=== PATIENT | female | born 1985 | race American Indian/Alaskan Native ===

== ENCOUNTER 2017-05-10 11:04 | Outpatient (CLI) | payer MEDICAID ==
[2017-05-10 12:27] LABS: Hematocrit 30.4 % (30.3-42.9); Hemoglobin 9.6 gm/dl (10.1-14.3); Mean Corpuscular HGB Conc 32 % (30-34); Mean Corpuscular Volume 80 fl (79-97); Platelet Count 434 K/mm3 (140-440); Red Blood Count 3.81 M/mm3 (3.65-5.03); Red Cell Distribution Width 15.7 % (13.2-15.2); White Blood Count 11.4 K/mm3 (4.5-11.0)
[2017-05-10 12:33] LABS: Mean Corpuscular Hemoglobin 25 pg (28-32)
[2017-05-10 12:56] LABS: Alanine Aminotransferase 7 units/L (7-56); Lactate Dehydrogenase 182 units/L (91-180)
[2017-05-10 13:07] LABS: Bilirubin,Urine NEG (Negative); Blood,Urine SM (Negative); Ketones,Urine NEG (Negative); Leukocyte Esterase,Urine NEG (Negative); Mucus,Urine FEW /HPF; Nitrite,Urine NEG (Negative); Protein,Urine <15 mg/dL mg/dL (Negative); Urobilinogen,Urine < 2.0 mg/dL (<2.0); WBC,Urine < 1.0 /HPF (0.0-6.0)
[2017-05-10 13:20] LABS: HIV-1 Antigen p24 Non React (Non React); HIVR-1/2 Ab Non React (Non React)
[2017-05-10] MEDS ORDERED: AMBIEN PO PRN (13:40)
[2017-05-10] MEDS ORDERED: ZOFRAN IV PRN (13:40)
[2017-05-10] MEDS ORDERED: TYLENOL PO PRN (13:40)
[2017-05-10] MEDS ORDERED: COLACE PO PRN (13:40)
--- NOTE | 2017-05-10 14:09 | History and Physical Report ---
History of Present Illness Date of examination: 05/10/17 (pt sent from office for PreE evaluation) History of present illness: EDC Confirmation: 06/07/2017 Gestational Age: 12 weeks Past History : 5 Term Births: 2 Living Children: 2 Para: 2 Elect. Ab: 1 Spont. Ab: 1 # 1 Delivery date: 1999 Weeks Gestation: 14 Delivery type: EAB Comments: denies # 2 Delivery date: 04/2006 Weeks Gestation: 36 labor: yes Delivery type: Anesthesia type: none Delivery location: [place] Infant Sex: Female weight: 4-14 Comments: PTL # 3 Delivery date: 2006 Weeks Gestation: 6 Delivery type: SAB Comments: denies # 4 Delivery date: 12/2012 Weeks Gestation: term Delivery type: Anesthesia type: epidural Delivery location: [facility] Sex: Male weight: 7-3 Comments: PE Lovenox; kidney stent Risk Factors: Smoked Tobacco Use: Former smoker Cigarettes: Yes Smokeless Tobacco Use: Never Passive smoke exposure: no Drug use: no HIV high-risk behavior: low risk Caffeine use: 1 drinks per day Alcohol use: no 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 of genital herpes: no Partner hx. of genital herpes: no Rash, Viral, or Febrile illness since last LMP? no Varicella/Chicken Pox Status: Previous Disease Infection History Comments: trich Genetic History Congenital Heart Defect: Mom: no Dad: no Parish Disease: Mom: no Dad: no Thalassemia Mom: no Dad: no Neural Tube Defect Mom: no Dad: no Down's Syndrome Mom: no Dad: no Parker-Sachs Mom: no Dad: no Sickle Cell Disease/Trait Mom: no Dad: yes Hemophilia Mom: no Dad: no Muscular Dystrophy Mom: no Dad: no Cystic Fibrosis Mom: no Dad: no [address] Chorea Mom: no Dad: no Mental Retardation Mom: no Dad: no Fragile X Mom: no Dad: no Other Genetic/Chromosomal Disorder Mom: no Dad: no Child w/other defect Mom: no Dad: no Enviromental Exposures Xray Exposure: no Medication, drug, or alcohol use since LMP: no Chemical/Other Exposure: no Exposure to Cat Liter: no Hx of Parvovirus (Fifth Disease): no Occupational Exposure to Children: none Active Medications: None Current Allergies: No known allergies Laboratory Results Date/Time Collected: 11/23/2016 Routine Urinalysis Leukocytes: negative Nitrite: negative Urobilinogen: negative Protein: Negative Blood: negative Ketone: negative Bilirubin: negative Glucose: Negative Urine HCG: positive Review of Systems General Denies fever, chills, sweats, anorexia, fatigue, weakness, malaise, weight loss and sleep disorder. Denies nausea, vomiting, headache, swelling of legs, abdominal pain, vaginal discharge, vaginal bleeding and contractions. Denies vaginal discharge, incontinence, dysuria, hematuria, urinary frequency, amenorrhea, menorrhagia, abnormal vaginal bleeding, pelvic pain, genital sores, decreased libido, painful periods, painful sex, urinary urgency, hot flashes, vaginal dryness, vaginal itching and vaginal odor. CV Denies chest pains, palpitations, syncope, dyspnea on exertion, orthopnea, PND and peripheral edema. Resp Denies cough, dyspnea at rest, excessive sputum, hemoptysis, wheezing and pleurisy. GI Denies nausea, vomiting, diarrhea, constipation, change in bowel habits, abdominal pain, melena, hematochezia, jaundice, gas/bloating, indigestion/ heartburn, dysphagia and odynophagia. Endo Denies cold intolerance, heat intolerance, polydipsia, polyphagia, polyuria and unusual weight change. Breast Denies left breast lump, right breast lump, nipple discharge, bloody discharge from nipple, breast pain, abnormal mammogram and breast enlargement. MS Denies back pain, joint pain, joint swelling, muscle cramps, muscle weakness, stiffness, arthritis, sciatica, restless legs, leg pain at night and leg pain with exertion. Derm Denies rash, itching, dryness and suspicious lesions. Neuro Denies paralysis, paresthesias, headache, seizures, tremors, vertigo, transient blindness, frequent falls, frequent headaches and difficulty walking. Psych Denies depression, anxiety, irritability and mood swings. Eyes Denies blurring, diplopia, irritation, discharge, vision loss, eye pain and photophobia. ENT Denies earache, ear discharge, tinnitus, decreased hearing, nasal congestion, nosebleeds, sore throat and hoarseness. Allergy Denies urticaria, allergic rash, hay fever and recurrent infections. Heme Denies abnormal bruising, bleeding and enlarged lymph nodes. 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 Vulva/Vagina: No lesions, normal BUS, normal rugae Cervix: No lesions; no cervical motion tenderness Uterus: normal size and position, midline, mobile Adnexae: no masses or tenderness Rectovaginal: no masses or tenderness Past History - Obstetrical History Expected Date of Delivery: 06/07/17 Actual Gestation: 36 Week(s) 0 Day(s) : 5 Para: 2 Hx # Term Pregnancies: 1 Number of Pregnancies: 1 (delivered @ 36 weeks; PE after 2013 PTD) Spontaneous Abortions: 1 Induced : 1 Number of Living Children: 2 Medications and Allergies Allergies Allergy/AdvReac Type Severity Reaction Status Date / Time bee venom (honey bee) Allergy Itching Verified 05/10/17 14:18 shrimp Allergy Itching Verified 05/10/17 14:18 Active Meds: Active Medications Acetaminophen (Tylenol) 650 mg PO Q4H PRN PRN Reason: Pain MILD(1-3)/Fever >100.5/SEGAL Docusate Sodium (Colace) 100 mg PO Q12H PRN PRN Reason: Constipation Heparin Sodium (Porcine) (Heparin) 5,000 unit SUB-Q Q12HR RIZWANA Lactated Ringer's (Lactated Ringers) 1,000 mls @ 125 mls/hr IV DIRECT RIZWANA Multivitamins/Iron/Calcium ( Vitamin) 1 each PO QDAY RIZWANA Ondansetron HCl (Zofran) 4 mg IV Q6H PRN PRN Reason: Nausea And Vomiting Zolpidem Tartrate (Ambien) 10 mg PO ONCE PRN PRN Reason: Sleep Review of Systems All systems: negative - Vital Signs Vital signs: Vital Signs Temp Pulse Resp BP 98.5 F 90 16 150/101 05/10/17 11:47 05/10/17 11:47 05/10/17 11:47 05/10/17 11:47 Temp Pulse Resp BP Pulse Ox 98.5 F 88 16 156/94 05/10/17 11:47 05/10/17 13:45 05/10/17 11:47 05/10/17 13:45 - Physical Exam Breasts: Positive: deferred Cardiovascular: Regular rate, Normal S1, Normal S2 Lungs: Positive: Normal air movement Abdomen: Positive: normal appearance, soft, normal bowel sounds. Negative: distention, tenderness Genitourinary (Female): Positive: normal external genitalia Vulva: both: normal Vagina: Positive: normal moisture. Negative: discharge Cervix: Negative: lesion, discharge Uterus: Positive: normal size, normal contour Adnexa: both: normal Anus/Rectum: Positive: normal perianal skin, heme negative. Negative: rectal mass, hemorrhoids Extremities: Positive: normal Deep Tendon Reflex Grade: Normal +2 - Obstetrical FHR: category 1 Uterine Contraction Monitor Mode: External Cervical Dilatation: 1 Cervical Effacement Percentage: 30 station: -3 Uterine Contraction Pattern: Absent Uterine Tone Measurement Phase: Resting Results Result Diagrams: 05/10/17 11:08 05/10/17 11:08 Abnormal lab results 05/10/17 05/10/17 05/10/17 Range/Units 11:08 11:08 11:56 WBC 11.4 H (4.5-11.0) K/mm3 Hgb 9.6 L (10.1-14.3) gm/dl MCH 25 L (28-32) pg RDW 15.7 H (13.2-15.2) % Creatinine 0.5 L (0.7-1.2) mg/dL Lactate Dehydrogenase 182 H (91-180) units/L U Epithel Cells (Auto) 15.0 H (0-13.0) /HPF All other labs normal. Profile drawn 12-23-16 in OB office: HBsAg Screen Negative Negative *1 Rubella Antibodies, IgG 2.74 index Immune >0.99 *2 Non-immune <0.90 Equivocal 0.90 - 0.99 Immune >0.99 ABO Grouping O *3 Rh Factor Positive *4 Please note: Prior records for this patient's ABO / Rh type are not available for additional verification. Antibody Screen Negative Negative *5 RPR Non Reactive Non Reactive *6 WBC [H] 14.4 x10E3/uL 3.4-10.8 *7 RBC 4.15 x10E6/uL 3.77-5.28 *8 Hemoglobin 11.2 g/dL 11.1-15.9 *9 Hematocrit 34.8 % 34.0-46.6 *10 MCV 84 fL 79-97 *11 MCH 27.0 pg 26.6-33.0 *12 MCHC 32.2 g/dL 31.5-35.7 *13 RDW 14.7 % 12.3-15.4 *14 Platelets [H] 438 x10E3/uL 150-379 *15 Neutrophils 65 % *16 Lymphs 26 % *17 Monocytes 8 % *18 Eos 1 % *19 Basos 0 % *20 ! Immature Cells <No Reported Value> *21 Neutrophils (Absolute) [H] 9.5 x10E3/uL 1.4-7.0 *22 Lymphs (Absolute) [H] 3.7 x10E3/uL 0.7-3.1 *23 Monocytes(Absolute) [H] 1.1 x10E3/uL 0.1-0.9 *24 Eos (Absolute) 0.1 x10E3/uL 0.0-0.4 *25 Baso (Absolute) 0.0 x10E3/uL 0.0-0.2 *26 ! Immature Granulocytes 0 % *27 ! Immature Grans (Abs) 0.0 x10E3/uL 0.0-0.1 *28 ! NRBC <No Reported Value> *29 Hematology Comments: <No Reported Value> *30 Tests: (2) Cystic Fibrosis Profile (835839) ! CF, Screen Comment: *31 RESULTS: Negative for 32 mutations analyzed INTERPRETATION: Tests: (3) HB Solu + Rflx [facility] ([id number]) Hemoglobin (Hgb) Solubility Negative Negative *33 Tests: (4) Panel 432685 ([id number]) HIV Screen 4th Generation wRfx Non Reactive Non Reactive *34 Tests: (5) HCV Ab w/Rflx to Verification ([id number]) ! HCV Ab <0.1 s/co ratio 0.0-0.9 *35 Tests: (6) Comment: ([id number]) ! Comment: SPRCS *36 Non reactive HCV antibody screen is consistent with no HCV infection, unless recent infection is suspected or other evidence exists to indicate HCV infection. Assessment and Plan APU admission for monitoring of BP and to monitor for labor. GBS result not back yet. PreE Labs drawn today. Ongoing 24hr urine. [facility] consult. aware Discussed POC with pt and SO both voiced understanding. All questions addressed. - Patient Problems (1) 36 weeks gestation of Onset Date: ~05/10/17 Current Visit: Yes Status: Acute Plan to address problem: 1. continuous monitoring 2. BPP and KATHE ultrasound ordered 3. monitor for s/sx of PTL (2) Elevated blood pressure affecting in third trimester, antepartum Onset Date: ~05/10/17 Current Visit: Yes Status: Acute Plan to address problem: 1. PreE labs drawn wnl 2. 24hr urine to be collected 3. [facility] consult due to new onset elevated BP in 3rd trimester (3) History of delivery Current Visit: Yes Status: Acute Plan to address problem: 1. continuous monitoring (4) History of pulmonary embolus (PE) Current Visit: Yes Status: Acute Plan to address problem: 1. continue heparin therapy as prescribed by [facility] Pt was transitioned from Lovenox 2. [facility] consult for continuity of care
[2017-05-10] MEDS: LACTATED RINGERS 1,000 ML IV SCH (17:04)
[2017-05-10] MEDS: HEPARIN SUB-Q SCH (21:57)
[2017-05-11] MEDS: LACTATED RINGERS 1,000 ML IV SCH ×2 (00:26→08:39)
--- NOTE | 2017-05-11 07:26 | Progress Note ---
Assessment and Plan Patient resting, no complaints. denies SEGAL, visual changes or epigastric pain. b /p mostly 120-130's/60-80's with a few elevated reading last night (highest 170/ 90.) Continue 24h urine until 1445. Will consult Dr. Campos with results and for plan. - Patient Problems (1) 36 weeks gestation of Onset Date: ~05/10/17 Current Visit: Yes Status: Acute (2) Elevated blood pressure affecting in third trimester, antepartum Onset Date: ~05/10/17 Current Visit: Yes Status: Acute Plan to address problem: Continue to monitor b/p and for s/s pre-e 24h urine will be complete @1445 Subjective - Subjective Date of service: 05/11/17 Principal diagnosis: 36w1d; elevated b/p, 24h urine in progress Patient reports: movement normal, other (No SEGAL, visual changes or epigastric pain), no new complaints, no loss of fluid, no vaginal bleeding, no contractions Objective - Vital Signs Vital Signs: Vital Signs - 12hr 05/10/17 05/10/17 05/10/17 19:26 19:31 19:34 Temperature Pulse Rate 93 H 96 H 102 H Respiratory Rate Blood Pressure O2 Sat by Pulse 98 97 93 Oximetry 05/10/17 05/10/17 05/10/17 19:36 19:41 19:46 Temperature Pulse Rate 98 H 104 H 104 H Respiratory Rate Blood Pressure O2 Sat by Pulse 99 98 98 Oximetry 05/10/17 05/10/17 05/10/17 19:51 19:53 19:56 Temperature Pulse Rate 102 H 81 85 Respiratory Rate Blood Pressure 136/73 O2 Sat by Pulse 99 98 Oximetry 05/10/17 05/10/17 05/10/17 20:01 20:06 20:10 Temperature Pulse Rate 90 91 H 83 Respiratory Rate Blood Pressure 136/69 O2 Sat by Pulse 99 97 Oximetry 05/10/17 05/10/17 05/10/17 20:11 20:34 20:39 Temperature 98.5 F Pulse Rate 91 H 75 92 H Respiratory 18 Rate Blood Pressure 136/69 O2 Sat by Pulse 99 99 98 Oximetry 05/10/17 05/10/17 05/10/17 20:44 20:49 20:53 Temperature Pulse Rate 85 97 H 86 Respiratory Rate Blood Pressure 130/75 O2 Sat by Pulse 98 99 Oximetry 05/10/17 05/10/17 05/10/17 20:54 20:59 21:06 Temperature Pulse Rate 101 H 80 88 Respiratory Rate Blood Pressure O2 Sat by Pulse 98 98 100 Oximetry 05/10/17 05/10/17 05/10/17 21:11 21:16 21:21 Temperature Pulse Rate 94 H 86 85 Respiratory Rate Blood Pressure O2 Sat by Pulse 97 98 98 Oximetry 05/10/17 05/10/17 05/10/17 21:26 21:31 21:33 Temperature Pulse Rate 88 82 87 Respiratory Rate Blood Pressure O2 Sat by Pulse 99 98 58 L Oximetry 05/10/17 05/10/17 05/10/17 21:36 21:48 21:53 Temperature Pulse Rate 88 100 H 79 Respiratory Rate Blood Pressure 143/86 O2 Sat by Pulse 99 98 97 Oximetry 05/10/17 05/10/17 05/10/17 22:01 22:02 22:06 Temperature Pulse Rate 92 H 91 H 90 Respiratory Rate Blood Pressure O2 Sat by Pulse 98 93 97 Oximetry 05/10/17 05/10/17 05/10/17 22:11 22:17 22:22 Temperature Pulse Rate 89 86 89 Respiratory Rate Blood Pressure O2 Sat by Pulse 98 98 98 Oximetry 05/10/17 05/10/17 05/10/17 22:27 22:32 22:37 Temperature Pulse Rate 87 81 84 Respiratory Rate Blood Pressure O2 Sat by Pulse 97 98 99 Oximetry 05/10/17 05/10/17 05/10/17 22:43 22:48 22:53 Temperature Pulse Rate 90 86 95 H Respiratory Rate Blood Pressure O2 Sat by Pulse 98 98 99 Oximetry 05/10/17 05/10/17 05/10/17 22:54 22:58 23:03 Temperature Pulse Rate 93 H 90 94 H Respiratory Rate Blood Pressure 177/90 O2 Sat by Pulse 98 99 Oximetry 05/10/17 05/10/17 05/10/17 23:07 23:22 23:24 Temperature Pulse Rate 95 H 81 99 H Respiratory Rate Blood Pressure O2 Sat by Pulse 91 81 L 98 Oximetry 05/10/17 05/10/17 05/10/17 23:29 23:34 23:39 Temperature Pulse Rate 99 H 90 89 Respiratory Rate Blood Pressure O2 Sat by Pulse 99 98 98 Oximetry 05/10/17 05/10/17 05/10/17 23:44 23:49 23:54 Temperature Pulse Rate 94 H 88 92 H Respiratory Rate Blood Pressure O2 Sat by Pulse 99 97 99 Oximetry 05/10/17 05/11/17 05/11/17 23:59 00:04 00:56 Temperature Pulse Rate 95 H 96 H 118 H Respiratory Rate Blood Pressure 147/84 O2 Sat by Pulse 98 99 Oximetry 05/11/17 05/11/17 05/11/17 01:53 02:53 03:53 Temperature Pulse Rate 88 84 85 Respiratory Rate Blood Pressure 152/70 138/85 129/65 O2 Sat by Pulse Oximetry 05/11/17 05/11/17 05/11/17 04:54 05:53 06:54 Temperature Pulse Rate 80 73 83 Respiratory Rate Blood Pressure 122/66 137/77 137/68 O2 Sat by Pulse Oximetry - Exam Breasts: normal Cardiovascular: Regular rate Lungs: Clear to auscultation, Normal air movement Abdomen: Present: normal appearance, soft Vulva: both: normal Uterus: Present: normal FHR: auscultation normal, category 1 Uterine Contraction Monitor Mode: External Uterine Contraction Pattern: Absent Uterine Tone Measurement Phase: Resting Extremities: normal Deep Tendon Reflex Grade: Normal +2 - Labs Labs: Abnormal Labs 05/10/17 05/10/17 05/10/17 11:08 11:08 11:56 WBC 11.4 H Hgb 9.6 L MCH 25 L RDW 15.7 H Creatinine 0.5 L Lactate Dehydrogenase 182 H U Epithel Cells (Auto) 15.0 H Laboratory Results - last 24 hr 05/10/17 05/10/17 05/10/17 11:08 11:08 11:08 WBC 11.4 H RBC 3.81 Hgb 9.6 L Hct 30.4 MCV 80 MCH 25 L MCHC 32 RDW 15.7 H Plt Count 434 Creatinine 0.5 L Estimated GFR > 60 Uric Acid 5.0 AST 9 ALT 7 Lactate Dehydrogenase 182 H Urine Color Urine Turbidity Urine pH Ur Specific Mcwilliams Urine Protein Urine Glucose (UA) Urine Ketones Urine Blood Urine Nitrite Urine Bilirubin Urine Urobilinogen Ur Leukocyte Esterase Urine WBC (Auto) Urine RBC (Auto) U Epithel Cells (Auto) Urine Mucus RPR Nonreactive HIV 1&2 Antibody Rapid Non react HIV P24 Antigen Non react Blood Type Antibody Screen ENRIQUETA Antibody Screen 05/10/17 05/10/17 11:56 15:30 WBC RBC Hgb Hct MCV MCH MCHC RDW Plt Count Creatinine Estimated GFR Uric Acid AST ALT Lactate Dehydrogenase Urine Color Yellow Urine Turbidity Clear Urine pH 7.0 Ur Specific Mcwilliams 1.009 Urine Protein <15 mg/dl Urine Glucose (UA) Neg Urine Ketones Neg Urine Blood Sm Urine Nitrite Neg Urine Bilirubin Neg Urine Urobilinogen < 2.0 Ur Leukocyte Esterase Neg Urine WBC (Auto) < 1.0 Urine RBC (Auto) 1.0 U Epithel Cells (Auto) 15.0 H Urine Mucus Few RPR HIV 1&2 Antibody Rapid HIV P24 Antigen Blood Type O POSITIVE Antibody Screen TNR ENRIQUETA Antibody Screen Negative
--- NOTE | 2017-05-11 08:14 | Ultrasound Report ---
ULTRASOUND BIOPHYSICAL PROFILE: History: well being Technique: Transabdominal ultrasound with Doppler interrogation. 2 - breathing movements 2 - movements 2 - posture and tone 2 - Qualitative amniotic fluid volume 8 - TOTAL SCORE OF POSSIBLE 8 Heart Rate (bpm) 145
--- NOTE | 2017-05-11 08:17 | Ultrasound Report ---
OB ULTRASOUND History: well being. Technique: Transabdominal ultrasound with Doppler interrogation. Gestation: Single Position: Cephalic Amniotic Fluid: Normal KATHE = 13.7 cm Placenta: Anterior, right lateral Placental Grade: 3 Heart Rate: 156 BPM BPD: 8.2 cm = 32 w 6 d HC: 30.3 cm = 33 w 5 d AC: 31.5 cm = 35 w 3 d FL: 6.7 cm = 34 w 3 d HC/AC Ratio: 0.96 Cephalic Index: 77.1 Estimated Weight: 2481 grams Clinical age = 36 w 3 d EDC: 06/04/17 US Gest. Age = 34 w 1 d EDC: 06/20/17
[2017-05-11] MEDS ORDERED: PRENATAL VITAMIN PO SCH (10:00)
[2017-05-11] MEDS: HEPARIN SUB-Q SCH (10:06)
[2017-05-11] MEDS ORDERED: APRESOLINE IV PRN (10:33)
--- NOTE | 2017-05-11 16:24 | Event Note ---
Date: 05/11/17 TP 198 in 24h urine, dx gestational htn. Will plan of iol next week @ 37 weeks. f/u appointment scheduled in office 05/14 @ 1400. pre-e precautions reviewed. plan for d/c home, dr. Campos consulted.
--- NOTE | 2017-05-11 16:27 | Discharge Summary ---
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 Primary care physician: MEAGHAN DAIYL Hospitalization Reason for admission: observation (observation for elevated blood pressure) Discharge diagnosis: other (gestational htn) Condition at discharge: Good Disposition: DC-01 TO HOME OR SELFCARE - Discharge Diagnoses (1) 36 weeks gestation of Status: Acute (2) Elevated blood pressure affecting in third trimester, antepartum Status: Acute Plan - Provider Discharge Summary Activity: routine Diet: routine Instructions: routine Additional instructions: [] Smoking cessation referral if applicable(refer to patient education folder for contact #) [] Refer to [facility]'s [facility] Booklet Call your doctor immediately for: * Fever > 100.5 * Heavy vaginal bleeding ( >1 pad per hour) * Severe persistent headache * Shortness of breath * Reddened, hot, painful area to leg or breast * Drainage or odor from incision. * Keep incision clean and dry at all times and follow doctor's instructions regarding bathing/showering - Follow up plan Follow up: MEAGHAN DAILY MD [Primary Care Provider] - 05/14/17 2:00 pm (please keep your next appointment scheduled for Wednesday @ 2[address] with Dr. Sharp at our [place] location.)
[2017-05-11 16:32] VITALS: BP 128/73
== END 2017-05-11 18:00 | disposition home or self-care (01) ==
LOC: TRG 11:04 → LD 15:31 → TRG 05-11 18:00
PROVIDERS: ATTEND Obstetrics & Gynecology
DX: O13.3 Gestational [pregnancy-induced] hypertension without significant proteinuria, third trimester (principal); O47.1 False labor at or after 37 completed weeks of gestation; Z3A.37 37 weeks gestation of pregnancy; Z87.891 Personal history of nicotine dependence
CPT/HCPCS: 36415; 76816; 76819; 81001; 82565; 83615; 84156; 84450; 84460; 84550; 85027; 86592; 86850; 86900; 86901; 87806; J0360; J1644; J2405; J7120

== ENCOUNTER 2017-05-16 21:03 | Inpatient (IN) | payer MEDICAID ==
--- NOTE | 2017-05-16 22:00 | History and Physical Report ---
History of Present Illness Date of admission: 05/16/17 21:03 Chief complaint: 37 weeks IUP GHTN, h/o PP pulmonary embolism History of present illness: Past History : 5 Term Births: 2 Living Children: 2 Para: 2 Elect. Ab: 1 Spont. Ab: 1 # 1 Delivery date: 1999 Weeks Gestation: 14 Delivery type: EAB Comments: denies # 2 Delivery date: 04/2006 Weeks Gestation: 36 labor: yes Delivery type: Anesthesia type: none Delivery location: [place] Sex: Female weight: 4-14 Comments: PTL # 3 Delivery date: 2006 Weeks Gestation: 6 Delivery type: SAB Comments: denies # 4 Delivery date: 12/2012 Weeks Gestation: term Delivery type: Anesthesia type: epidural Delivery location: [facility] Sex: Male weight: 7-3 Comments: PE Lovenox; kidney stent Risk Factors: Smoked Tobacco Use: Former smoker Cigarettes: Yes Smokeless Tobacco Use: Never Passive smoke exposure: no Drug use: no HIV high-risk behavior: low risk Caffeine use: 1 drinks per day Alcohol use: no 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 of genital herpes: no Partner hx. of genital herpes: no Rash, Viral, or Febrile illness since last LMP? no Varicella/Chicken Pox Status: Previous Disease Infection History Comments: trich Genetic History Congenital Heart Defect: Mom: no Dad: no Parish Disease: Mom: no Dad: no Thalassemia Mom: no Dad: no Neural Tube Defect Mom: no Dad: no Down's Syndrome Mom: no Dad: no Parker-Sachs Mom: no Dad: no Sickle Cell Disease/Trait Mom: no Dad: yes Hemophilia Mom: no Dad: no Muscular Dystrophy Mom: no Dad: no Cystic Fibrosis Mom: no Dad: no Kanwal Chorea Mom: no Dad: no Mental Retardation Mom: no Dad: no Fragile X Mom: no Dad: no Other Genetic/Chromosomal Disorder Mom: no Dad: no Child w/other defect Mom: no Dad: no Enviromental Exposures Xray Exposure: no Medication, drug, or alcohol use since LMP: no Chemical/Other Exposure: no Exposure to Cat Liter: no Hx of Parvovirus (Fifth Disease): no Occupational Exposure to Children: none Active Medications: None Current Allergies: No known allergies Past History - Obstetrical History Expected Date of Delivery: 06/07/17 Actual Gestation: 36 Week(s) 6 Day(s) : 5 Medications and Allergies Allergies Allergy/AdvReac Type Severity Reaction Status Date / Time bee venom (honey bee) Allergy Itching Verified 05/10/17 14:18 shrimp Allergy Itching Verified 05/10/17 14:18 Home Medications Medication Instructions Recorded Confirmed Last Taken Type Heparin 5 Unit/5 ml (1/ml) Syr 05/11/17 05/09/17 History Review of Systems All systems: negative - Physical Exam Breasts: Positive: deferred Cardiovascular: Regular rate Lungs: Positive: Normal air movement Abdomen: Positive: normal appearance, soft Genitourinary (Female): Positive: normal external genitalia, normal perenium Vulva: both: normal Uterus: Positive: normal size Extremities: Positive: normal. Negative: tenderness, edema Deep Tendon Reflex Grade: Normal +2 - Obstetrical FHR: category 1 Uterine Contraction Monitor Mode: External Cervical Dilatation: 0 Cervical Effacement Percentage: 0 station: -3 Uterine Contraction Pattern: Irregular Results All other labs normal. Assessment and Plan - Patient Problems (1) 37 weeks gestation of Current Visit: Yes Status: Acute (2) Gestational hypertension Current Visit: No Status: Acute Qualifiers: Trimester: T Plan to address problem: will perform PIH labs to r/o development of preeclampsia (3) History of delivery Current Visit: No Status: Acute (4) History of pulmonary embolus (PE) Current Visit: No Status: Acute Plan to address problem: Last heparin dose was at 9a today
[2017-05-16] MEDS ORDERED: PHENERGAN PO PRN (22:04)
[2017-05-16] MEDS ORDERED: MINERAL OIL PO PRN (22:04)
[2017-05-16] MEDS ORDERED: CERVIDIL VG ONE (22:04)
[2017-05-16] MEDS ORDERED: ePHEDrine SULFATE IV PRN (22:04)
[2017-05-16] MEDS ORDERED: SUBLIMAZE IV PRN (22:04)
[2017-05-16] MEDS ORDERED: XYLOCAINE 2% INFILTRATI ONE (22:04)
[2017-05-16] MEDS ORDERED: NARCAN 0.4 MG/1 ML IV PRN (22:04)
[2017-05-16] MEDS ORDERED: BRETHINE SUB-Q PRN (22:04)
[2017-05-16] MEDS ORDERED: BRETHINE IVP PRN (22:04)
[2017-05-16] MEDS ORDERED: PHENERGAN PR PRN (22:04)
--- NOTE | 2017-05-16 22:25 | Event Note ---
Date: 05/16/17 vertex by bedside US
[2017-05-16] MEDS ORDERED: PITOCin/NS 20 UNIT/1000ML DRIP 20 UNITS/1,000 ML BAG IV SCH (23:00)
[2017-05-16] MEDS ORDERED: PITOCin/NS 30 UNIT/500ML 30 UNITS/500 ML BAG IV SCH (23:00)
[2017-05-16 23:33] LABS: Bacteria,Urine 1+ /HPF (Negative); Bilirubin,Urine NEG (Negative); Blood,Urine NEG (Negative); Ketones,Urine NEG (Negative); Leukocyte Esterase,Urine NEG (Negative); Mucus,Urine FEW /HPF; Nitrite,Urine NEG (Negative); Protein,Urine <15 mg/dL mg/dL (Negative); Urobilinogen,Urine < 2.0 mg/dL (<2.0)
[2017-05-16 23:37] LABS: INR 0.98 (0.87-1.13)
[2017-05-16 23:44] LABS: Alanine Aminotransferase 6 units/L (7-56)
[2017-05-17 00:08] LABS: Hematocrit 26.9 % (30.3-42.9); Hemoglobin 8.8 gm/dl (10.1-14.3); Mean Corpuscular HGB Conc 33 % (30-34); Mean Corpuscular Volume 79 fl (79-97); Platelet Count 387 K/mm3 (140-440); Red Blood Count 3.41 M/mm3 (3.65-5.03); Red Cell Distribution Width 15.9 % (13.2-15.2); White Blood Count 13.5 K/mm3 (4.5-11.0)
[2017-05-17 00:11] LABS: Mean Corpuscular Hemoglobin 26 pg (28-32)
[2017-05-17] MEDS ORDERED: CERVIDIL VG ONE ×2 (01:00→13:00)
[2017-05-17 02:32] LABS: Lactate Dehydrogenase 209 units/L (91-180); Uric Acid 5.9 mg/dL (3.5-7.6)
[2017-05-17] MEDS: STADOL IV PRN ×3 (06:11→13:22)
--- NOTE | 2017-05-17 06:13 | Progress Note ---
Assessment and Plan Pt tolerating IOL well. Will allow AM care and diet this AM Cervidil due to come out @ noon. All questions addressed Subjective - Subjective Date of service: 05/17/17 (pt kayleigh) Principal diagnosis: Day # 1 IOL @ 37 weeks GTHN / Hx PE on Heparin prior to admission Patient reports: movement normal Objective - Vital Signs Vital Signs: Vital Signs - 12hr 05/16/17 05/16/17 05/16/17 21:55 22:12 22:27 Temperature 97.7 F Pulse Rate 106 H 90 90 Respiratory 14 Rate Blood Pressure 148/91 140/79 140/79 O2 Sat by Pulse Oximetry 05/16/17 05/16/17 05/16/17 22:56 23:26 23:33 Temperature Pulse Rate 91 H 94 H 87 Respiratory Rate Blood Pressure 145/74 158/91 145/84 O2 Sat by Pulse Oximetry 05/16/17 05/17/17 05/17/17 23:57 00:44 00:57 Temperature Pulse Rate 80 100 H 93 H Respiratory Rate Blood Pressure 128/74 140/65 128/60 O2 Sat by Pulse Oximetry 05/17/17 05/17/17 05/17/17 01:28 01:56 02:40 Temperature Pulse Rate 90 87 88 Respiratory Rate Blood Pressure 139/65 137/81 146/74 O2 Sat by Pulse Oximetry 05/17/17 05/17/17 05/17/17 02:57 03:27 03:57 Temperature Pulse Rate 86 84 88 Respiratory Rate Blood Pressure 132/61 128/59 135/64 O2 Sat by Pulse Oximetry 05/17/17 05/17/17 05/17/17 04:28 04:56 05:47 Temperature Pulse Rate 86 86 81 Respiratory Rate Blood Pressure 134/64 139/72 143/75 O2 Sat by Pulse Oximetry 05/17/17 05/17/17 05:56 05:57 Temperature 97.6 F Pulse Rate 94 H 81 Respiratory 16 Rate Blood Pressure 147/91 144/91 O2 Sat by Pulse 100 Oximetry - Exam Breasts: deferred Cardiovascular: Regular rate Lungs: Normal air movement Abdomen: Present: normal appearance, soft. Absent: distention, tenderness Vulva: both: normal Uterus: Present: normal FHR: auscultation normal, category 1 Uterine Contraction Monitor Mode: External Cervical Dilatation: 0 (cervidil in place) Cervical Effacement Percentage: 0 station: -3 Uterine Contraction Pattern: Regular Uterine Tone Measurement Phase: Resting Uterine Contraction Intensity: Mild Extremities: normal Deep Tendon Reflex Grade: Normal +2 - Labs Labs: Abnormal Labs 05/16/17 05/16/17 21:35 22:08 WBC 13.5 H RBC 3.41 L Hgb 8.8 L Hct 26.9 L MCH 26 L RDW 15.9 H Creatinine 0.6 L ALT 6 L Lactate Dehydrogenase 209 H Laboratory Results - last 24 hr 05/16/17 05/16/17 05/16/17 21:35 21:35 22:08 WBC 13.5 H RBC 3.41 L Hgb 8.8 L Hct 26.9 L MCV 79 MCH 26 L MCHC 33 RDW 15.9 H Plt Count 387 PT 13.5 INR 0.98 APTT 30.0 Creatinine Estimated GFR Uric Acid AST ALT Lactate Dehydrogenase Urine Color Urine Turbidity Urine pH Ur Specific [place] Urine Protein Urine Glucose (UA) Urine Ketones Urine Blood Urine Nitrite Urine Bilirubin Urine Urobilinogen Ur Leukocyte Esterase Urine WBC (Auto) Urine RBC (Auto) U Epithel Cells (Auto) Urine Bacteria (Auto) Urine Mucus Blood Type O POSITIVE Antibody Screen TNR ENRIQUETA Antibody Screen Negative 05/16/17 05/16/17 22:08 22:11 WBC RBC Hgb Hct MCV MCH MCHC RDW Plt Count PT INR APTT Creatinine 0.6 L Estimated GFR > 60 Uric Acid 5.9 AST 11 ALT 6 L Lactate Dehydrogenase 209 H Urine Color Yellow Urine Turbidity Clear Urine pH 6.0 Ur Specific [place] 1.013 Urine Protein <15 mg/dl Urine Glucose (UA) Neg Urine Ketones Neg Urine Blood Neg Urine Nitrite Neg Urine Bilirubin Neg Urine Urobilinogen < 2.0 Ur Leukocyte Esterase Neg Urine WBC (Auto) 1.0 Urine RBC (Auto) 1.0 U Epithel Cells (Auto) 1.0 Urine Bacteria (Auto) 1+ Urine Mucus Few Blood Type Antibody Screen ENRIQUETA Antibody Screen
[2017-05-17] MEDS: ZOFRAN IV PRN (12:42)
[2017-05-17] MEDS: LACTATED RINGERS 1,000 ML IV SCH (15:42)
[2017-05-18] MEDS: STADOL IV PRN ×2 (02:21→15:16)
--- NOTE | 2017-05-18 06:30 | Progress Note ---
Assessment and Plan Explained to pt effect of cervidil can cause vaginal jacobson to feel raw and swollen. very gentle exam done Cervix is posterior,closed,long, -4 head is presenting part, confirmed by US yesterday. Will begin Pitocin per protocol Pt again made aware of nature of serial induction. All questions addressed. Subjective - Subjective Date of service: 05/18/17 (low dose pit) Principal diagnosis: Day # 2 IOL @ 37 weeks GTHN / Hx PE on Heparin prior to admission Patient reports: movement normal Objective - Vital Signs Vital Signs: Vital Signs - 12hr 05/17/17 05/17/17 05/17/17 18:54 18:55 18:57 Temperature 99.3 F Pulse Rate 80 80 80 Respiratory 20 Rate Blood Pressure 99/55 144/66 144/66 O2 Sat by Pulse 100 Oximetry 05/18/17 05/18/17 05/18/17 00:42 02:19 02:21 Temperature Pulse Rate 72 76 Respiratory 18 Rate Blood Pressure 146/81 139/85 O2 Sat by Pulse Oximetry 05/18/17 05/18/17 03:06 05:17 Temperature Pulse Rate 80 91 H Respiratory Rate Blood Pressure 147/74 134/68 O2 Sat by Pulse Oximetry - Exam Breasts: deferred Cardiovascular: Regular rate Lungs: Normal air movement Abdomen: Present: normal appearance, soft. Absent: distention, tenderness Vulva: both: normal Uterus: Present: normal FHR: auscultation normal, category 1 Uterine Contraction Monitor Mode: External Cervical Dilatation: 0 (very difficult exam; pt states vagina feels"swollen") Cervical Effacement Percentage: 0 station: -4 Uterine Contraction Frequency (min): q7-8 Uterine Contraction Duration: 40 Uterine Contraction Pattern: Regular Uterine Contraction Intensity: Mild Extremities: normal Deep Tendon Reflex Grade: Normal +2 - Labs Labs: Abnormal Labs 05/16/17 05/16/17 21:35 22:08 WBC 13.5 H RBC 3.41 L Hgb 8.8 L Hct 26.9 L MCH 26 L RDW 15.9 H Creatinine 0.6 L ALT 6 L Lactate Dehydrogenase 209 H Laboratory Results - last 24 hr 05/16/17 22:04 RPR Nonreactive
[2017-05-18] MEDS: PITOCin/NS 30 UNIT/500ML 30 UNITS/500 ML BAG IV SCH ×2 (08:45→21:19)
--- NOTE | 2017-05-18 17:57 | Event Note ---
Date: 05/18/17 Pt resting in bed, no complaints, cat 1, irregular contractions, will allow her to eat tonight then shower, and ambulate for a short while if nst reactive cat 1 then start low pitocin induction. Questions answered, she voiced understanding and agrees with plan of care.
[2017-05-18] MEDS: ZOFRAN IV PRN (19:05)
[2017-05-18] MEDS ORDERED: APRESOLINE IV PRN (20:08)
--- NOTE | 2017-05-18 20:24 | Event Note ---
Date: 05/18/17 (BP 186/96 X 2) Received call from RN caring for pt concerning elevated BPs Pt is in the shower now. Instructed to have pt return to bed. Give 10 of Apresoline and retake BP in 10 min and call CNM. aware of chg in condition and new orders. Called back to L&D and spoke with Charge Nurse Orders repeated and understood.
[2017-05-19] MEDS: LACTATED RINGERS 1,000 ML IV SCH ×3 (01:40→14:10)
--- NOTE | 2017-05-19 07:57 | Progress Note ---
Assessment and Plan serial induction in progress, received low dose pit through the night with regular mild ctx, patient unaware of ctx and denies pain. plan discussed with patient - shower and breakfast, may ambulate. will restart pitocin for active management @ 0900. patient requested deferred SVE d/c vaginal tenderness from repeated doses of cervidil. Will reevaluate cervix as clinically necessary. patient verbalizes understanding of plan and agrees. Dr. queen consulted, requests EFW. Will order. - Patient Problems (1) 37 weeks gestation of Current Visit: Yes Status: Acute (2) Gestational hypertension Current Visit: No Status: Acute Qualifiers: Trimester: T Subjective - Subjective Date of service: 05/19/17 Principal diagnosis: Day # 3 IOL @ 37 weeks GTHN / Hx PE on Heparin prior to admission Patient reports: movement normal, other (vaginal tenderness), no loss of fluid, no vaginal bleeding, no contractions Objective - Vital Signs Vital Signs: Vital Signs - 12hr 05/18/17 05/18/17 05/18/17 20:18 20:41 20:46 Pulse Rate 89 89 93 H Blood Pressure 133/74 O2 Sat by Pulse 97 98 Oximetry 05/18/17 05/18/17 05/18/17 20:49 20:51 20:56 Pulse Rate 91 H 97 H 95 H Blood Pressure 126/86 O2 Sat by Pulse 96 97 Oximetry 05/18/17 05/18/17 05/18/17 21:01 21:06 21:11 Pulse Rate 85 90 83 Blood Pressure O2 Sat by Pulse 98 98 98 Oximetry 05/18/17 05/18/17 05/18/17 21:16 21:19 21:21 Pulse Rate 99 H 85 103 H Blood Pressure 141/79 O2 Sat by Pulse 98 97 Oximetry 05/18/17 05/18/17 05/18/17 21:26 21:31 21:36 Pulse Rate 104 H 104 H 99 H Blood Pressure O2 Sat by Pulse 98 98 97 Oximetry 05/18/17 05/18/17 05/18/17 21:41 21:46 21:49 Pulse Rate 105 H 97 H 104 H Blood Pressure 140/85 O2 Sat by Pulse 98 97 Oximetry 05/18/17 05/18/17 05/18/17 21:51 21:56 22:01 Pulse Rate 111 H 104 H 99 H Blood Pressure O2 Sat by Pulse 97 97 98 Oximetry 05/18/17 05/18/17 05/18/17 22:06 22:11 22:16 Pulse Rate 103 H 101 H 99 H Blood Pressure O2 Sat by Pulse 96 95 97 Oximetry 05/18/17 05/18/17 05/18/17 22:19 22:21 22:26 Pulse Rate 102 H 107 H 101 H Blood Pressure 131/68 O2 Sat by Pulse 97 98 Oximetry 05/18/17 05/18/17 05/18/17 22:31 22:36 22:41 Pulse Rate 104 H 101 H 103 H Blood Pressure O2 Sat by Pulse 98 97 96 Oximetry 05/18/17 05/18/17 05/18/17 22:46 22:49 22:51 Pulse Rate 108 H 91 H 104 H Blood Pressure 148/66 O2 Sat by Pulse 95 95 Oximetry 05/18/17 05/18/17 05/18/17 22:56 23:01 23:06 Pulse Rate 95 H 99 H 101 H Blood Pressure O2 Sat by Pulse 95 95 96 Oximetry 05/18/17 05/18/17 05/18/17 23:08 23:11 23:16 Pulse Rate 107 H 104 H 90 Blood Pressure O2 Sat by Pulse 94 97 96 Oximetry 05/18/17 05/18/17 05/18/17 23:20 23:21 23:23 Pulse Rate 91 H 92 H 91 H Blood Pressure 139/63 O2 Sat by Pulse 95 94 Oximetry 05/18/17 05/18/17 05/18/17 23:26 23:31 23:36 Pulse Rate 90 94 H 94 H Blood Pressure O2 Sat by Pulse 94 94 94 Oximetry 05/18/17 05/18/17 05/18/17 23:41 23:46 23:51 Pulse Rate 91 H 93 H 94 H Blood Pressure O2 Sat by Pulse 94 94 93 Oximetry 05/18/17 05/19/17 05/19/17 23:56 00:01 00:06 Pulse Rate 99 H 94 H 97 H Blood Pressure O2 Sat by Pulse 94 94 94 Oximetry 05/19/17 05/19/17 05/19/17 00:07 00:11 00:13 Pulse Rate 90 91 H 91 H Blood Pressure O2 Sat by Pulse 94 94 94 Oximetry 05/19/17 05/19/17 05/19/17 00:16 00:21 00:26 Pulse Rate 95 H 87 89 Blood Pressure 131/62 O2 Sat by Pulse 94 96 94 Oximetry 05/19/17 05/19/17 05/19/17 00:27 00:31 00:34 Pulse Rate 86 87 93 H Blood Pressure O2 Sat by Pulse 94 95 94 Oximetry 05/19/17 05/19/17 05/19/17 00:36 00:41 00:46 Pulse Rate 82 86 93 H Blood Pressure O2 Sat by Pulse 96 96 96 Oximetry 05/19/17 05/19/17 05/19/17 00:51 00:56 01:01 Pulse Rate 89 91 H 80 Blood Pressure O2 Sat by Pulse 96 97 98 Oximetry 05/19/17 05/19/17 05/19/17 01:06 01:11 01:16 Pulse Rate 80 85 88 Blood Pressure O2 Sat by Pulse 96 96 97 Oximetry 05/19/17 05/19/17 05/19/17 01:21 01:22 01:26 Pulse Rate 88 81 91 H Blood Pressure 142/70 O2 Sat by Pulse 97 96 Oximetry 05/19/17 05/19/17 05/19/17 01:31 01:44 01:49 Pulse Rate 83 82 91 H Blood Pressure O2 Sat by Pulse 98 99 99 Oximetry 05/19/17 05/19/17 05/19/17 01:54 01:59 02:04 Pulse Rate 87 89 95 H Blood Pressure O2 Sat by Pulse 98 97 96 Oximetry 05/19/17 05/19/17 05/19/17 02:09 02:14 02:19 Pulse Rate 92 H 93 H 96 H Blood Pressure O2 Sat by Pulse 96 95 95 Oximetry 05/19/17 05/19/17 05/19/17 02:21 02:24 02:26 Pulse Rate 90 91 H 99 H Blood Pressure 136/70 O2 Sat by Pulse 94 95 94 Oximetry 05/19/17 05/19/17 05/19/17 02:29 02:34 02:39 Pulse Rate 91 H 94 H 96 H Blood Pressure O2 Sat by Pulse 95 95 95 Oximetry 05/19/17 05/19/17 05/19/17 02:40 02:44 02:48 Pulse Rate 94 H 94 H 97 H Blood Pressure O2 Sat by Pulse 94 94 94 Oximetry 05/19/17 05/19/17 05/19/17 02:49 02:54 02:55 Pulse Rate 99 H 95 H 92 H Blood Pressure O2 Sat by Pulse 94 94 94 Oximetry 05/19/17 05/19/17 05/19/17 02:59 03:04 03:09 Pulse Rate 101 H 84 97 H Blood Pressure O2 Sat by Pulse 94 96 95 Oximetry 05/19/17 05/19/17 05/19/17 03:14 03:16 03:19 Pulse Rate 96 H 88 95 H Blood Pressure O2 Sat by Pulse 95 94 95 Oximetry 05/19/17 05/19/17 05/19/17 03:21 03:24 03:28 Pulse Rate 93 H 104 H 102 H Blood Pressure 137/77 O2 Sat by Pulse 93 95 94 Oximetry 05/19/17 05/19/17 05/19/17 03:29 03:33 03:34 Pulse Rate 99 H 106 H 97 H Blood Pressure O2 Sat by Pulse 95 94 95 Oximetry 05/19/17 05/19/17 05/19/17 03:39 03:44 03:46 Pulse Rate 100 H 91 H 94 H Blood Pressure O2 Sat by Pulse 94 95 94 Oximetry 05/19/17 05/19/17 05/19/17 03:50 03:54 03:56 Pulse Rate 100 H 97 H 89 Blood Pressure O2 Sat by Pulse 95 95 94 Oximetry 05/19/17 05/19/17 05/19/17 03:59 04:04 04:09 Pulse Rate 91 H 89 89 Blood Pressure O2 Sat by Pulse 95 96 96 Oximetry 05/19/17 05/19/17 05/19/17 04:13 04:21 04:26 Pulse Rate 85 92 H 88 Blood Pressure O2 Sat by Pulse 94 98 98 Oximetry 05/19/17 05/19/17 05/19/17 04:31 04:36 04:41 Pulse Rate 92 H 81 76 Blood Pressure O2 Sat by Pulse 97 98 97 Oximetry 05/19/17 05/19/17 05/19/17 04:46 04:51 04:56 Pulse Rate 86 98 H 85 Blood Pressure O2 Sat by Pulse 97 96 96 Oximetry 05/19/17 05/19/17 05/19/17 05:01 05:06 05:11 Pulse Rate 90 93 H 88 Blood Pressure O2 Sat by Pulse 96 97 96 Oximetry 05/19/17 05/19/17 05/19/17 05:16 05:21 05:26 Pulse Rate 89 100 H 80 Blood Pressure 139/74 O2 Sat by Pulse 96 97 96 Oximetry 05/19/17 05/19/17 05/19/17 05:31 05:36 05:41 Pulse Rate 93 H 95 H 95 H Blood Pressure O2 Sat by Pulse 96 96 95 Oximetry 05/19/17 05/19/17 05/19/17 05:46 05:51 05:53 Pulse Rate 95 H 89 90 Blood Pressure O2 Sat by Pulse 95 96 94 Oximetry 05/19/17 05/19/17 05/19/17 05:56 06:00 06:01 Pulse Rate 98 H 94 H 90 Blood Pressure O2 Sat by Pulse 95 94 97 Oximetry 05/19/17 05/19/17 05/19/17 06:06 06:11 06:16 Pulse Rate 85 92 H 96 H Blood Pressure O2 Sat by Pulse 94 94 95 Oximetry 05/19/17 05/19/17 05/19/17 06:17 06:21 06:26 Pulse Rate 88 89 95 H Blood Pressure 147/82 O2 Sat by Pulse 94 95 96 Oximetry 05/19/17 05/19/17 05/19/17 06:31 06:36 06:41 Pulse Rate 89 89 98 H Blood Pressure O2 Sat by Pulse 98 96 96 Oximetry 05/19/17 05/19/17 05/19/17 06:46 06:51 06:56 Pulse Rate 88 86 93 H Blood Pressure O2 Sat by Pulse 97 97 97 Oximetry 05/19/17 05/19/17 05/19/17 07:01 07:06 07:11 Pulse Rate 92 H 95 H 84 Blood Pressure O2 Sat by Pulse 98 97 98 Oximetry 05/19/17 05/19/17 05/19/17 07:16 07:21 07:26 Pulse Rate 85 96 H 98 H Blood Pressure 155/92 O2 Sat by Pulse 97 98 97 Oximetry - Exam Breasts: normal Cardiovascular: Regular rate Lungs: Clear to auscultation Abdomen: Present: normal appearance, soft, normal bowel sounds Vulva: both: normal Uterus: Present: normal FHR: auscultation normal, category 1 Uterine Contraction Monitor Mode: External Uterine Contraction Frequency (min): 4-6 Uterine Contraction Duration: 60 Uterine Contraction Pattern: Regular Uterine Tone Measurement Phase: Contraction Uterine Contraction Intensity: Mild Extremities: normal Deep Tendon Reflex Grade: Normal +2 - Labs Labs: Abnormal Labs 05/16/17 05/16/17 21:35 22:08 WBC 13.5 H RBC 3.41 L Hgb 8.8 L Hct 26.9 L MCH 26 L RDW 15.9 H Creatinine 0.6 L ALT 6 L Lactate Dehydrogenase 209 H
--- NOTE | 2017-05-19 09:08 | Event Note ---
Date: 05/19/17 Pt examined and u/s = vertex, adequate fluid and EFW 2748 gm which matches clinical estimate of 6#. Exam by me is vertex, 2cm, 50%, -3. Will allow to eat and start Pit then RBOW. Discussed all with patient.
--- NOTE | 2017-05-19 09:49 | Ultrasound Report ---
ULTRASOUND OB FOLLOWUP HISTORY: well being TECHNIQUE: Transabdominal ultrasound with Doppler interrogation. Gestation: Single Position: Cephalic Amniotic Fluid: Normal KATHE = 13.6 cm Placenta: Anterior Placental Grade: 2 Heart Rate: 145 BPM Cervical length: Not measured BPD: 8.5 cm = 34 w 0 d HC: 31.5 cm = 35 w 2 d AC: 32.0 cm = 35 w 6 d FL: 7.1 cm = 36 w 2 d HC/AC Ratio: 1.05 Cephalic Index: 83.0 Estimated Weight: 2748 grams LMP: 08/28/16 Clinical age = 37 w 5 d EDC: 06/04/17 US Gest. Age = 35 w 3 d EDC: 06/20/17
--- NOTE | 2017-05-19 12:50 | Progress Note ---
Assessment and Plan ISE used to AROM, moderate amount of clear fluid. Vertex presentation by both palpation and u/s. patient is unsure if she wants epidural, rn to offer PRN. anticipate . Pit currently infusing @ 24mU. Dr. queen updated. - Patient Problems (1) 37 weeks gestation of Current Visit: Yes Status: Acute (2) Gestational hypertension Current Visit: No Status: Acute Qualifiers: Trimester: third trimester Qualified Code(s): O13.3 - Gestational [ -induced] hypertension without significant proteinuria, third trimester Subjective - Subjective Date of service: 05/19/17 Principal diagnosis: Day # 3 IOL @ 37 weeks GTHN / Hx PE on Heparin prior to admission Patient reports: loss of fluid, movement normal, contractions, other ( vaginal tenderness), no vaginal bleeding Objective - Vital Signs Vital Signs: Vital Signs - 12hr 05/19/17 05/19/17 05/19/17 00:51 00:56 01:01 Temperature Pulse Rate 89 91 H 80 Respiratory Rate Blood Pressure O2 Sat by Pulse 96 97 98 Oximetry 05/19/17 05/19/17 05/19/17 01:06 01:11 01:16 Temperature Pulse Rate 80 85 88 Respiratory Rate Blood Pressure O2 Sat by Pulse 96 96 97 Oximetry 05/19/17 05/19/17 05/19/17 01:21 01:22 01:26 Temperature Pulse Rate 88 81 91 H Respiratory Rate Blood Pressure 142/70 O2 Sat by Pulse 97 96 Oximetry 05/19/17 05/19/17 05/19/17 01:31 01:44 01:49 Temperature Pulse Rate 83 82 91 H Respiratory Rate Blood Pressure O2 Sat by Pulse 98 99 99 Oximetry 05/19/17 05/19/17 05/19/17 01:54 01:59 02:04 Temperature Pulse Rate 87 89 95 H Respiratory Rate Blood Pressure O2 Sat by Pulse 98 97 96 Oximetry 05/19/17 05/19/17 05/19/17 02:09 02:14 02:19 Temperature Pulse Rate 92 H 93 H 96 H Respiratory Rate Blood Pressure O2 Sat by Pulse 96 95 95 Oximetry 05/19/17 05/19/17 05/19/17 02:21 02:24 02:26 Temperature Pulse Rate 90 91 H 99 H Respiratory Rate Blood Pressure 136/70 O2 Sat by Pulse 94 95 94 Oximetry 05/19/17 05/19/17 05/19/17 02:29 02:34 02:39 Temperature Pulse Rate 91 H 94 H 96 H Respiratory Rate Blood Pressure O2 Sat by Pulse 95 95 95 Oximetry 05/19/17 05/19/17 05/19/17 02:40 02:44 02:48 Temperature Pulse Rate 94 H 94 H 97 H Respiratory Rate Blood Pressure O2 Sat by Pulse 94 94 94 Oximetry 05/19/17 05/19/17 05/19/17 02:49 02:54 02:55 Temperature Pulse Rate 99 H 95 H 92 H Respiratory Rate Blood Pressure O2 Sat by Pulse 94 94 94 Oximetry 05/19/17 05/19/17 05/19/17 02:59 03:04 03:09 Temperature Pulse Rate 101 H 84 97 H Respiratory Rate Blood Pressure O2 Sat by Pulse 94 96 95 Oximetry 05/19/17 05/19/17 05/19/17 03:14 03:16 03:19 Temperature Pulse Rate 96 H 88 95 H Respiratory Rate Blood Pressure O2 Sat by Pulse 95 94 95 Oximetry 05/19/17 05/19/17 05/19/17 03:21 03:24 03:28 Temperature Pulse Rate 93 H 104 H 102 H Respiratory Rate Blood Pressure 137/77 O2 Sat by Pulse 93 95 94 Oximetry 05/19/17 05/19/17 05/19/17 03:29 03:33 03:34 Temperature Pulse Rate 99 H 106 H 97 H Respiratory Rate Blood Pressure O2 Sat by Pulse 95 94 95 Oximetry 05/19/17 05/19/17 05/19/17 03:39 03:44 03:46 Temperature Pulse Rate 100 H 91 H 94 H Respiratory Rate Blood Pressure O2 Sat by Pulse 94 95 94 Oximetry 05/19/17 05/19/17 05/19/17 03:50 03:54 03:56 Temperature Pulse Rate 100 H 97 H 89 Respiratory Rate Blood Pressure O2 Sat by Pulse 95 95 94 Oximetry 05/19/17 05/19/17 05/19/17 03:59 04:04 04:09 Temperature Pulse Rate 91 H 89 89 Respiratory Rate Blood Pressure O2 Sat by Pulse 95 96 96 Oximetry 05/19/17 05/19/17 05/19/17 04:13 04:21 04:26 Temperature Pulse Rate 85 92 H 88 Respiratory Rate Blood Pressure O2 Sat by Pulse 94 98 98 Oximetry 05/19/17 05/19/17 05/19/17 04:31 04:36 04:41 Temperature Pulse Rate 92 H 81 76 Respiratory Rate Blood Pressure O2 Sat by Pulse 97 98 97 Oximetry 05/19/17 05/19/17 05/19/17 04:46 04:51 04:56 Temperature Pulse Rate 86 98 H 85 Respiratory Rate Blood Pressure O2 Sat by Pulse 97 96 96 Oximetry 05/19/17 05/19/17 05/19/17 05:01 05:06 05:11 Temperature Pulse Rate 90 93 H 88 Respiratory Rate Blood Pressure O2 Sat by Pulse 96 97 96 Oximetry 05/19/17 05/19/17 05/19/17 05:16 05:21 05:26 Temperature Pulse Rate 89 100 H 80 Respiratory Rate Blood Pressure 139/74 O2 Sat by Pulse 96 97 96 Oximetry 05/19/17 05/19/17 05/19/17 05:31 05:36 05:41 Temperature Pulse Rate 93 H 95 H 95 H Respiratory Rate Blood Pressure O2 Sat by Pulse 96 96 95 Oximetry 05/19/17 05/19/17 05/19/17 05:46 05:51 05:53 Temperature Pulse Rate 95 H 89 90 Respiratory Rate Blood Pressure O2 Sat by Pulse 95 96 94 Oximetry 05/19/17 05/19/17 05/19/17 05:56 06:00 06:01 Temperature Pulse Rate 98 H 94 H 90 Respiratory Rate Blood Pressure O2 Sat by Pulse 95 94 97 Oximetry 05/19/17 05/19/17 05/19/17 06:06 06:11 06:16 Temperature Pulse Rate 85 92 H 96 H Respiratory Rate Blood Pressure O2 Sat by Pulse 94 94 95 Oximetry 05/19/17 05/19/17 05/19/17 06:17 06:21 06:26 Temperature Pulse Rate 88 89 95 H Respiratory Rate Blood Pressure 147/82 O2 Sat by Pulse 94 95 96 Oximetry 05/19/17 05/19/17 05/19/17 06:31 06:36 06:41 Temperature Pulse Rate 89 89 98 H Respiratory Rate Blood Pressure O2 Sat by Pulse 98 96 96 Oximetry 05/19/17 05/19/17 05/19/17 06:46 06:51 06:56 Temperature Pulse Rate 88 86 93 H Respiratory Rate Blood Pressure O2 Sat by Pulse 97 97 97 Oximetry 05/19/17 05/19/1705/19/17 07:01 07:06 07:11 Temperature Pulse Rate 92 H 95 H 84 Respiratory Rate Blood Pressure O2 Sat by Pulse 98 97 98 Oximetry 05/19/17 05/19/17 05/19/17 07:16 07:21 07:26 Temperature Pulse Rate 85 96 H 98 H Respiratory Rate Blood Pressure 155/92 O2 Sat by Pulse 97 98 97 Oximetry 05/19/17 05/19/17 05/19/17 07:30 09:30 09:31 Temperature 97.9 F 99.0 F Pulse Rate 96 H 108 H 98 H Respiratory 16 16 Rate Blood Pressure 155/92 150/88 O2 Sat by Pulse 97 98 99 Oximetry 05/19/17 05/19/17 05/19/17 09:36 09:38 09:41 Temperature Pulse Rate 99 H 99 H 107 H Respiratory Rate Blood Pressure 150/88 O2 Sat by Pulse 98 98 Oximetry 05/19/17 05/19/17 05/19/17 09:46 09:51 09:56 Temperature Pulse Rate 108 H 104 H 117 H Respiratory Rate Blood Pressure O2 Sat by Pulse 98 98 98 Oximetry 05/19/17 05/19/17 05/19/17 10:01 10:06 10:11 Temperature Pulse Rate 112 H 114 H 93 H Respiratory Rate Blood Pressure O2 Sat by Pulse 98 98 98 Oximetry 05/19/17 05/19/17 05/19/17 10:15 10:16 10:20 Temperature Pulse Rate 103 H 95 H 102 H Respiratory Rate Blood Pressure O2 Sat by Pulse 94 97 94 Oximetry 05/19/17 05/19/17 05/19/17 10:21 10:26 10:31 Temperature Pulse Rate 105 H 95 H 95 H Respiratory Rate Blood Pressure 160/86 O2 Sat by Pulse 95 98 98 Oximetry 05/19/17 05/19/17 05/19/17 10:36 10:41 10:46 Temperature Pulse Rate 102 H 97 H 97 H Respiratory Rate Blood Pressure O2 Sat by Pulse 97 97 97 Oximetry 05/19/17 05/19/17 05/19/17 10:51 10:56 11:01 Temperature Pulse Rate 100 H 98 H 107 H Respiratory Rate Blood Pressure O2 Sat by Pulse 96 96 97 Oximetry 05/19/17 05/19/17 05/19/17 11:06 11:11 11:16 Temperature Pulse Rate 99 H 99 H 109 H Respiratory Rate Blood Pressure O2 Sat by Pulse 96 95 95 Oximetry 05/19/17 05/19/17 05/19/17 11:21 11:26 11:30 Temperature 98.1 F Pulse Rate 85 98 H 96 H Respiratory 18 Rate Blood Pressure 157/91 O2 Sat by Pulse 98 95 94 Oximetry 05/19/17 05/19/17 05/19/17 11:31 11:35 11:36 Temperature Pulse Rate 103 H 98 H 98 H Respiratory Rate Blood Pressure O2 Sat by Pulse 95 94 95 Oximetry 05/19/17 05/19/17 05/19/17 11:41 11:46 11:51 Temperature Pulse Rate 97 H 91 H 94 H Respiratory Rate Blood Pressure O2 Sat by Pulse 96 97 96 Oximetry 05/19/17 05/19/17 05/19/17 11:56 12:01 12:11 Temperature Pulse Rate 91 H 96 H 90 Respiratory Rate Blood Pressure O2 Sat by Pulse 95 96 98 Oximetry 05/19/17 05/19/17 05/19/17 12:16 12:21 12:22 Temperature Pulse Rate 104 H 94 H 93 H Respiratory Rate Blood Pressure 143/82 O2 Sat by Pulse 96 96 Oximetry 05/19/17 05/19/17 12:26 12:31 Temperature Pulse Rate 93 H 101 H Respiratory Rate Blood Pressure O2 Sat by Pulse 98 97 Oximetry - Exam Breasts: normal Cardiovascular: Regular rate Lungs: Clear to auscultation, Normal air movement Abdomen: Present: normal appearance, soft Vulva: both: normal Uterus: Present: normal FHR: auscultation normal, category 1 Uterine Contraction Monitor Mode: External Cervical Dilatation: 3.5 Cervical Effacement Percentage: 70 station: -3 Uterine Contraction Frequency (min): 2 Uterine Contraction Duration: 60 Uterine Contraction Pattern: Regular Uterine Tone Measurement Phase: Contraction Uterine Contraction Intensity: Moderate Extremities: normal Deep Tendon Reflex Grade: Normal +2 - Labs Labs: Abnormal Labs 05/16/17 05/16/17 21:35 22:08 WBC 13.5 H RBC 3.41 L Hgb 8.8 L Hct 26.9 L MCH 26 L RDW 15.9 H Creatinine 0.6 L ALT 6 L Lactate Dehydrogenase 209 H
[2017-05-19] MEDS ORDERED: ePHEDrine SULFATE ONE (14:29)
--- NOTE | 2017-05-19 14:43 | Anesthesia Consultation ---
Anesthesia Consult and Med Hx Date of service: 05/19/17 - Airway Anesthetic Teeth Evaluation: Good ROM Head & Neck: Adequate Mental/Hyoid Distance: Adequate Mallampati Class: Class II Intubation Access Assessment: Probably Good - Pulmonary Exam CTA: Yes - Cardiac Exam Cardiac Exam: RRR - Pre-Operative Health Status ASA Pre-Surgery Classification: ASA2 Proposed Anesthetic Plan: Epidural, Spinal - Pulmonary Hx Asthma: No COPD: No Hx Pneumonia: No - Cardiovascular System Hx Hypertension: Yes (THIS PREG.) - Central Nervous System Hx Seizures: No Hx Psychiatric Problems: Yes (at 18 DX. WITH DEPRESSION, MEDICATION WAS LITHIUM. ADMITTED IN PATIENT.) - Endocrine Hx Renal Disease: No Hx End Stage Renal Disease: No Hx Hypothyroidism: No Hx Hyperthyroidism: No - Hematic Hx Anemia: No Hx Sickle Cell Disease: No - Other Systems Hx Alcohol Use: No Hx Obesity: Yes - Additional Comments Anesthesia Medical History Comments: +IUP
[2017-05-19] MEDS ORDERED: ePHEDrine SULFATE IV PRN (14:59)
[2017-05-19] MEDS ORDERED: fentaNYL-BUPIV 2 MCG/ML-0.125% 200 MCG/100 ML BAG EPIDURAL SCH (15:00)
[2017-05-19] MEDS: ZOFRAN IV PRN (15:27)
--- NOTE | 2017-05-19 16:22 | Procedure Note ---
OB Delivery Note - Delivery Date of Delivery: 05/19/17 ( Female) Pull Out Operator: MAY VERAS Estimated blood loss: 300cc - Vaginal Delivery presentation: vertex Delivery position: OA (ANDREY) Intrapartum events: none Delivery induction: cervidil Delivery augmentation: rupture of membranes, pitocin Delivery monitor: external FHT, external uterine Route of delivery: Delivery placenta: spontaneous Delivery cord: 3 umbilical vessels Episiotomy: none Delivery laceration: none Anesthesia: epidural Delivery comments: Female infant del ANDREY over intact perineum, placed skin to skin. 3 vessel cord clamped and cut, cord blood collected. Placenta del intact and complete. Pit to IVF. Patient wishes to take placenta home. no lacerations to repair. Fundus firm, bleeding scant. ELB 300, apgars 8/9, wt 5#15. Mother and remain LDRP stable. - Infant A at 1 minute: 8 at 5 minutes: 9 Infant Gender: Female (5#15oz)
[2017-05-19] MEDS ORDERED: BENADRYL PO PRN (17:31)
[2017-05-19] MEDS ORDERED: TUCKS PAD TP PRN (17:31)
[2017-05-19] MEDS ORDERED: LANSINOH TP PRN (17:31)
[2017-05-19] MEDS ORDERED: TYLENOL PO PRN (17:31)
[2017-05-19] MEDS ORDERED: PITOCin/NS 20 UNIT/1000ML DRIP 20 UNITS/1,000 ML BAG IV SCH (17:31)
[2017-05-19] MEDS ORDERED: MILK OF MAGNESIA PO PRN (17:31)
[2017-05-19] MEDS ORDERED: DULCOLAX PR PRN (17:31)
[2017-05-19] MEDS ORDERED: SODIUM CHLORIDE FLUSH SYRINGE 10 ML IV NR (17:31)
[2017-05-19] MEDS: MOTRIN PO SCH ×2 (17:42→22:59)
[2017-05-19] MEDS: NORCO 5/325 PO PRN (17:44)
[2017-05-19] MEDS ORDERED: LOVENOX SUB-Q SCH (18:30)
[2017-05-19] MEDS: COLACE PO SCH (22:56)
[2017-05-19] MEDS: FEOSOL PO SCH (22:56)
[2017-05-20 04:25] LABS: Hematocrit 26.4 % (30.3-42.9); Hemoglobin 8.5 gm/dl (10.1-14.3)
[2017-05-20] MEDS: MOTRIN PO SCH ×3 (05:03→19:14)
[2017-05-20] MEDS ORDERED: BOOSTRIX IM ONE (06:00)
--- NOTE | 2017-05-20 08:25 | Progress Note ---
Assessment and Plan Pt w/o complaint BPs 170-150/90-70 with most readings in the 150s/70s No c/o SEGAL, blurred vision, chest pain FF below umb Lochia small Perineum intact H&H 06/05 chronic anemia Pt is asymptomatic PO iron ordered. Lovenox as ordered. Doing well s/p vag del P: continue pathway Monitor BPs given report. Subjective - Subjective Date of service: 05/20/17 (pt w/o complaint) Principal diagnosis: Day # 1 / GTHN / Hx PE now on Lovenox Patient reports: appetite normal, voiding normally, pain well controlled, ambulating normally [place]: doing well Objective - Vital Signs Latest vital signs: Vital Signs Temp Pulse Resp BP Pulse Ox 05/20/17 05:03 18 05/20/17 00:45 98.6 F 72 20 158/77 05/19/17 22:59 18 05/19/17 20:30 98.9 F 74 20 149/88 05/19/17 18:25 99.2 F 69 18 166/75 05/19/17 18:05 99.2 F 81 18 155/93 05/19/17 17:15 99.1 F 85 18 158/82 98 05/19/17 16:01 18 170/92 05/19/17 15:59 98.9 F 90 18 150/80 98 05/19/17 15:55 95 H 170/92 05/19/17 15:45 93 H 99 05/19/17 15:40 80 166/82 100 05/19/17 15:35 101 H 99 05/19/17 15:30 101 H 100 05/19/17 15:25 86 99 05/19/17 15:20 85 99 05/19/17 15:16 81 80 L 05/19/17 15:15 82 83 L 05/19/17 15:10 93 H 100 05/19/17 15:09 85 144/85 05/19/17 15:07 93 H 138/105 05/19/17 15:05 79 99 05/19/17 15:01 76 165/91 05/19/17 15:00 88 05/19/17 14:59 101 H 155/82 05/19/17 14:57 96 H 162/77 05/19/17 14:55 88 171/84 99 05/19/17 14:53 90 157/74 05/19/17 14:51 92 H 184/83 05/19/17 14:49 67 180/99 80 L 05/19/17 14:46 96 H 93 05/19/17 14:44 96 H 98 05/19/17 14:36 88 98 05/19/17 14:31 95 H 99 05/19/17 14:26 95 H 100 05/19/17 14:21 99 H 99 05/19/17 14:16 96 H 99 05/19/17 14:11 90 98 05/19/17 13:23 117 H 125/83 05/19/17 13:16 91 H 98 05/19/17 13:11 84 98 05/19/17 13:06 94 H 99 05/19/17 13:01 89 100 05/19/17 12:56 94 H 99 05/19/17 12:51 87 99 05/19/17 12:31 101 H 97 05/19/17 12:26 93 H 98 05/19/17 12:22 93 H 143/82 05/19/17 12:21 94 H 96 05/19/17 12:16 104 H 96 05/19/17 12:11 90 98 05/19/17 12:01 96 H 96 05/19/17 11:56 91 H 95 05/19/17 11:51 94 H 96 05/19/17 11:46 91 H 97 05/19/17 11:41 97 H 96 05/19/17 11:36 98 H 95 05/19/17 11:35 98 H 94 05/19/17 11:31 103 H 95 05/19/17 11:30 96 H 94 05/19/17 11:26 98 H 95 05/19/17 11:21 98.1 F 85 18 157/91 98 05/19/17 11:16 109 H 95 05/19/17 11:11 99 H 95 05/19/17 11:06 99 H 96 05/19/17 11:01 107 H 97 05/19/17 10:56 98 H 96 05/19/17 10:51 100 H 96 05/19/17 10:46 97 H 97 05/19/17 10:41 97 H 97 05/19/17 10:36 102 H 97 05/19/17 10:31 95 H 98 05/19/17 10:26 95 H 98 05/19/17 10:21 105 H 160/86 95 05/19/17 10:20 102 H 94 05/19/17 10:16 95 H 97 05/19/17 10:15 103 H 94 05/19/17 10:11 93 H 98 05/19/17 10:06 114 H 98 05/19/17 10:01 112 H 98 05/19/17 09:56 117 H 98 05/19/17 09:51 104 H 98 05/19/17 09:46 108 H 98 05/19/17 09:41 107 H 98 05/19/17 09:38 99 H 150/88 05/19/17 09:36 99 H 98 05/19/17 09:31 98 H 99 05/19/17 09:30 99.0 F 108 H 16 150/88 98 Intake and Output 05/19/17 05/20/17 05/20/17 22:59 06:59 14:59 Intake Total 120 240 Output Total 2000 Balance -1880 240 Intake: Oral 120 240 Output: Urine 2000 Indwelling Catheter 1100 Uretheral (Mahmood) 300 Void 600 Other: Total, Intake Amount 120 240 Total, Output Amount 600 # Voids Void 1 Estimated Blood Loss 300 - Exam Breasts: Present: normal Cardiovascular: Present: Regular rate Lungs: Present: Normal air movement Abdomen: Present: normal appearance, soft, normal bowel sounds Uterus: Present: normal Extremities: Present: normal Deep Tendon Reflex Grade: Normal +2 Incision: Present: normal - Labs Labs: Abnormal lab results 05/20/17 Range/Units 03:42 Hgb 8.5 L (10.1-14.3) gm/dl Hct 26.4 L (30.3-42.9) %
[2017-05-20] MEDS: FEOSOL PO SCH ×3 (11:17→22:28)
[2017-05-20] MEDS: PRENATAL VITAMIN PO SCH (11:17)
[2017-05-20] MEDS: COLACE PO SCH ×2 (11:17→22:28)
[2017-05-20] MEDS: NORMODYNE PO SCH ×2 (12:32→22:27)
--- NOTE | 2017-05-20 15:03 | Progress Note ---
Subjective Date of service: 05/20/17 Principal diagnosis: Day # 1 / GTHN / Hx PE now on Lovenox Interval history: 1st day after normal vaginal delivery Patient is in the bed, comfortable. Pain is mostly controlled with pain meds. Ambulated well. No residual neurological deficit. No anesthesia complications Objective - Constitutional Vitals: Vital Signs - 12hr 05/20/17 05/20/17 05/20/17 05:03 08:35 12:30 Temperature 98.2 F 98.6 F Pulse Rate 76 82 Respiratory 18 18 18 Rate Blood Pressure 155/95 155/94 05/20/17 12:32 Temperature Pulse Rate Respiratory Rate Blood Pressure 155/94 - Labs CBC & Chem 7: 05/20/17 03:42 05/16/17 22:08 Labs: Abnormal lab results 05/20/17 Range/Units 03:42 Hgb 8.5 L (10.1-14.3) gm/dl Hct 26.4 L (30.3-42.9) %
[2017-05-20] MEDS ORDERED: LOVENOX SUB-Q SCH (20:30)
[2017-05-21] MEDS: NORCO 5/325 PO PRN ×2 (00:11→05:56)
[2017-05-21] MEDS: MOTRIN PO SCH ×2 (00:11→05:57)
--- NOTE | 2017-05-21 07:41 | Progress Note ---
Assessment and Plan patient w/o complaints, desires d/c home today. b/p responding well to labetalol 140's/80's, no s/s pre-e. remains asymptomatic for anemia. reviewed discharge rx (labetalol, lovenox, fe, stool softener) patient will f/u 1 week in office, appointment scheduled. - Patient Problems (1) Gestational hypertension Current Visit: Yes Status: Acute Qualifiers: Trimester: third trimester Qualified Code(s): O13.3 - Gestational [ -induced] hypertension without significant proteinuria, third trimester (2) History of pulmonary embolus (PE) Current Visit: Yes Status: Acute (3) Vaginal delivery Current Visit: Yes Status: Acute Subjective - Subjective Date of service: 05/21/17 Principal diagnosis: Day # 2 / GTHN / Hx PE now on Lovenox Patient reports: appetite normal, voiding normally, pain well controlled, ambulating normally, no dizzy ambulation, no nauseated : doing well, nursing well Objective - Vital Signs Latest vital signs: Vital Signs Temp Pulse Resp BP 05/21/17 01:20 97.4 F L 69 18 144/82 05/20/17 22:27 80 146/85 05/20/17 22:00 97.9 F 68 18 145/86 05/20/17 17:00 98.7 F 78 18 148/85 05/20/17 12:32 155/94 05/20/17 12:30 98.6 F 82 18 155/94 05/20/17 08:35 98.2 F 76 18 155/95 Intake and Output 05/20/17 05/21/17 05/21/17 22:59 06:59 14:59 Intake Total 660 Balance 660 Intake: Intake, Free Water 660 Other: # Voids Void 1 2 - Exam Breasts: Present: normal, Cardiovascular: Present: Regular rate Lungs: Present: Clear to auscultation, Normal air movement Abdomen: Present: normal appearance, soft, normal bowel sounds Vulva: both: normal Uterus: Present: normal, firm, fundal height at umbilicus Extremities: Present: normal Deep Tendon Reflex Grade: Normal +2
--- NOTE | 2017-05-21 07:43 | Discharge Summary ---
Providers - Providers Date of Admission: 05/16/17 21:03 Date of discharge: 05/21/17 (desires d/c home) Attending physician: ALEX HERNANDEZ Primary care physician: ALEX HERNANDEZ Hospitalization Reason for admission: induction of labor (GHTN) Delivery: Episiotomy: none Laceration: none Other procedures: none complications: none Discharge diagnosis: IUP at term delivered baby: female Hospital course: uncomplicated vaginal delivery after serial IOL for GHTN Condition at discharge: Good Disposition: DC-01 TO HOME OR SELFCARE - Discharge Diagnoses (1) Gestational hypertension Status: Acute Qualifiers: Trimester: third trimester Qualified Code(s): O13.3 - Gestational [ -induced] hypertension without significant proteinuria, third trimester (2) History of pulmonary embolus (PE) Status: Acute (3) Vaginal delivery Status: Acute Plan - Discharge Medications Prescriptions: Docusate Sodium [Colace] 100 mg PO BID PRN #90 capsule PRN Reason: Constipation Enoxaparin [Lovenox] 40 mg SQ QDAY #30 syringe Ferrous Sulfate [Feosol 325 MG tab] 325 mg PO TID #90 tablet Ibuprofen [Motrin 600 MG tab] 600 mg PO Q8H PRN #30 tablet PRN Reason: Pain Labetalol [Normodyne TAB] 100 mg PO BID #60 tablet - Provider Discharge Summary Activity: routine, no sex for 6 weeks, no heavy lifting 4 weeks, no strenuous exercise Diet: routine Instructions: routine Additional instructions: [] Smoking cessation referral if applicable(refer to patient education folder for contact #) [] Refer to [facility] Book[facility] Call your doctor immediately for: * Fever > 100.5 * Heavy vaginal bleeding ( >1 pad per hour) * Severe persistent headache * Shortness of breath * Reddened, hot, painful area to leg or breast * Drainage or odor from incision. * Keep incision clean and dry at all times and follow doctor's instructions regarding bathing/showering - Follow up plan Follow up: ALEX HERNANDEZ MD [Primary Care Provider] - 05/28/17 9:45 am ( Congratulations!! An appointment has been scheduled for next week wednesday @ 0945 for your blood pressure check. Call for any questions or complaints of headache, visual changes or chest pain. )
[2017-05-21] MEDS: FEOSOL PO SCH (08:32)
[2017-05-21] MEDS: PRENATAL VITAMIN PO SCH (10:35)
[2017-05-21] MEDS: NORMODYNE PO SCH (10:35)
[2017-05-21] MEDS: COLACE PO SCH ×2 (10:36→11:02)
[2017-05-21 12:42] VITALS: BP 150/72
== END 2017-05-21 12:48 | disposition home or self-care (01) | DRG 774 ==
LOC: LD 21:03 → OB 05-19 18:40
PROVIDERS: ADMIT Obstetrics & Gynecology; ATTEND Obstetrics & Gynecology
PROC: 10E0XZZ Delivery of Products of Conception, External Approach (ICD-10-PCS; principal; 2017-05-19)
PROC: 00HU33Z Insertion of Infusion Device into Spinal Canal, Percutaneous Approach (ICD-10-PCS; 2017-05-19)
PROC: 3E0R3CZ (ICD-10-PCS; 2017-05-19)
PROC: 3E0P7GC Introduction of Other Therapeutic Substance into Female Reproductive, Via Natural or Artificial Opening (ICD-10-PCS; 2017-05-19)
DX: O13.4 Gestational [pregnancy-induced] hypertension without significant proteinuria, complicating childbirth (principal); Z3A.37 37 weeks gestation of pregnancy; Z87.51 Personal history of pre-term labor; Z37.0 Single live birth; Z91.030 Bee allergy status; Z91.013 Allergy to seafood
CPT/HCPCS: 36415; 59200; 76816; 81001; 82565; 83615; 84450; 84460; 84550; 85014; 85018; 85027; 85610; 85730; 86592; 86850; 86900; 86901; 90715; 99211; G0463; J0595; J1650; J2405; J2590; J3010; J7120